=== PATIENT | male | born 2005 | race Caucasian/White ===

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

== ENCOUNTER 2023-10-02 14:03 | Emergency (ER) | payer BC, MEDICAID ==
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
[2023-10-02 14:21] VITALS: TEMP 96.6; O2SAT 100
--- NOTE | 2023-10-02 14:45 | XRAY ---
Indication: Pain and swelling following punching injury. Comparison: November 21, 2022 3 view right hand demonstrates new mildly angulated 5th metacarpal shaft acute fracture. No other bony, articular, or soft tissue abnormalities.
[2023-10-02 14:57] VITALS: BP 127/69; PULSE 70; RESP 22
[2023-10-02] MEDS ORDERED: TYLENOL 325 MG ONE (15:10)
[2023-10-02] MEDS ORDERED: MOTRIN 600 MG ONE (15:10)
[2023-10-02] MEDS: MOTRIN 600 MG PO ONE (15:11)
[2023-10-02] MEDS: TYLENOL 325 MG PO ONE (15:11)
== END 2023-10-02 15:20 | disposition home or self-care (01) ==
LOC: ED 14:03
DX: S62.326A Displaced fracture of shaft of fifth metacarpal bone, right hand, initial encounter for closed fracture (principal); W22.09XA Striking against other stationary object, initial encounter; Y92.810 Car as the place of occurrence of the external cause; Z28.310 Unvaccinated for COVID-19; Z72.0 Tobacco use
CPT/HCPCS: 29125; 73130; 99283; A4570; A9270-GY

== ENCOUNTER 2023-10-03 09:26 | Day surgery (SDC) | payer MEDICAID ==
[2023-10-03] MEDS ORDERED: Lactated Ringers 1,000 ML IV ONE (09:50)
[2023-10-03] MEDS ORDERED: CEFAZOLIN 2 GM-D5W BAG** 2 GM/50 ML ML IV ONE (09:53)
[2023-10-03] MEDS ORDERED: Decadron 4 MG INJ ONE (12:11)
[2023-10-03] MEDS ORDERED: SUBLIMAZE 100 MCG/2 ML ONE ×2 (12:11→12:37)
[2023-10-03] MEDS ORDERED: Xylocaine-Mpf 2% 5 Ml Vial ONE (12:11)
[2023-10-03] MEDS ORDERED: Versed 2 MG/2 ML Injection ONE (12:11)
[2023-10-03] MEDS ORDERED: DIPRIVAN 200 MG/20 ML IV ONE (12:11)
[2023-10-03] MEDS ORDERED: Zofran 4 MG/2 ML VIAL ONE (12:11)
[2023-10-03] MEDS ORDERED: TORAdol 30 mg Injection ONE (12:13)
[2023-10-03] MEDS ORDERED: Sensorcaine 0.25% 10 ML ONE (12:45)
[2023-10-03] MEDS: CEFAZOLIN 2 GM-D5W BAG** 2 GM/50 ML ML IV SCH (13:30)
--- NOTE | 2023-10-03 13:53 | XRAY ---
Indication: Right 5th metacarpal ORIF. Intraoperative fluoroscopy provided for 11 seconds. 5 digital spot images submitted for interpretation demonstrates orthopedic K wire fixating 5th metacarpal shaft fracture in good apposition/alignment. Correlate with intraoperative findings/report.
[2023-10-03 14:09] VITALS: RESP 18; TEMP 97.6; O2SAT 96
[2023-10-03 14:29] VITALS: BP 121/79; PULSE 59
[2023-10-03] MEDS: Lactated Ringers 1,000 ML IV SCH (14:44)
--- NOTE | 2023-10-03 15:53 | XRAY ---
11seconds of fluoroscopy was used in surgery for an ORIF 5th metacarpal of the right hand.
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
== END 2023-10-03 14:30 | disposition home or self-care (01) ==
LOC: SDC 09:26
PROVIDERS: ATTEND Orthopaedic Surgery
DX: S62.326A Displaced fracture of shaft of fifth metacarpal bone, right hand, initial encounter for closed fracture (principal)
CPT/HCPCS: 73130; 76000; J0690; J1100; J1885; J2250; J2405; J2704; J3010

== ENCOUNTER 2024-04-17 20:58 | Emergency (ER) | payer BC, MEDICAID ==
[2024-04-17 21:15] VITALS: RESP 16; TEMP 98.6
[2024-04-17 22:18] VITALS: PULSE 54
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
[2024-04-17 23:45] VITALS: BP 98/50; O2SAT 98
== END 2024-04-17 23:47 | disposition home or self-care (01) ==
LOC: ED 20:58
DX: S00.33XA Contusion of nose, initial encounter (principal); Y04.2XXA Assault by strike against or bumped into by another person, initial encounter; Y92.810 Car as the place of occurrence of the external cause; Z72.0 Tobacco use
CPT/HCPCS: 70450; 70486; 99283